=== PATIENT | female | born 1985 | race American Indian/Alaskan Native ===

== ENCOUNTER 2020-09-21 18:48 | Emergency (ER) | payer SELFPAY ==
[2020-09-21 21:29] LABS: Bilirubin,Urine NEG (Negative); Blood,Urine NEG (Negative); Color,Urine Yellow (Yellow); Mucus,Urine FEW /HPF; Protein,Urine <15 mg/dL mg/dL (Negative); Urobilinogen,Urine < 2.0 mg/dL (<2.0)
[2020-09-21 21:37] LABS: HCG Qualitative,Urine Negative (Negative)
[2020-09-21] MEDS ORDERED: ONDANSETRON 4 MG ODT TAB PO ONE (21:47)
[2020-09-21] MEDS ORDERED: ACETAMINOPHEN 500 MG TAB PO ONE (21:47)
[2020-09-21] MEDS ORDERED: valACYclovir 500 MG TAB PO ONE (21:47)
--- NOTE | 2020-09-21 22:44 | Emergency Department Report ---
ED Female HPI - General Chief complaint: Urogenital-Female Stated complaint: VAGINAL DISCHARGE/SORE/BLEEDING Source: patient Mode of arrival: Ambulatory Limitations: No Limitations - History of Present Illness Initial comments: Patient is a A0 35-year-old -[place] female with no past medical history who presents to the ED with complaint of acute onset persistent painful vaginal lesions and vaginal discharge with malodorous smell for the last 4 days. Patient states that she last had an unprotected sexual intercourse about 5 days ago and that the symptoms have been persistent and worsened in the last 2 days. Patient states that she was initially treated at an urgent care clinic in [place] empirically for gonorrhea and chlamydia but the discharge has been persistent and constant. Patient states that she even used antifungal cream thinking it was a yeast infection but this has not helped. Patient denies dysuria, vaginal bleeding, dyspareunia, chest pain, shortness of breath, cough, sore throat, nausea, vomiting, abdominal pain or low back pain. MD Complaint: vaginal discharge, other (urinary urgency and frequency; painful vaginal lesions) -: Sudden, days(s) (4) Location: labia Radiation: non-radiating Severity: severe Severity scale (0 -10): 7 Quality: sharp, aching Consistency: constant Improves with: none Worsens with: urination, movement Are you Now?: No Last Menstrual Period: 09/11/20 EDC: 06/18/21 Associated Symptoms: denies other symptoms, vaginal discharge, rash (painful vaginal lesions). denies: vaginal bleeding, abdominal pain, nausea/vomiting, fever/chills, headaches, loss of appetite, dysuria, seizure, shortness of breath, syncope, other - Related Data Sexually active: Yes : 2 Para: 2 A: 0 Previous Rx's Medication Instructions Recorded Last Taken Type Fluconazole (Nf) [Diflucan TAB] 150 mg PO ONCE #2 tablet 09/21/20 Unknown Rx Ibuprofen [Motrin] 800 mg PO Q8HR PRN #24 tablet 09/21/20 Unknown Rx Ondansetron [Zofran Odt] 4 mg PO Q6HR PRN #15 tab.rapdis 09/21/20 Unknown Rx Valacyclovir HCl [Valtrex] 1,000 mg PO Q8H #30 tablet 09/21/20 Unknown Rx metroNIDAZOLE [Flagyl] 500 mg PO Q12HR #20 tab 09/21/20 Unknown Rx Allergies Allergy/AdvReac Type Severity Reaction Status Date / Time No Known Allergies Allergy Verified 09/21/20 21:51 ED Review of Systems ROS: Stated complaint: VAGINAL DISCHARGE/SORE/BLEEDING Other details as noted in HPI Constitutional: denies: chills, fever Eyes: denies: eye pain, eye discharge, vision change ENT: denies: ear pain, throat pain Respiratory: denies: cough, shortness of breath, wheezing Cardiovascular: denies: chest pain, palpitations Endocrine: no symptoms reported Gastrointestinal: denies: abdominal pain, nausea, diarrhea Genitourinary: urgency, frequency, discharge, other (Painful vaginal lesions). denies: dysuria Musculoskeletal: denies: back pain, joint swelling, arthralgia Skin: denies: rash, lesions Neurological: denies: headache, weakness, paresthesias Psychiatric: denies: anxiety, depression Hematological/Lymphatic: denies: easy bleeding, easy bruising ED Past Medical Hx - Past Medical History Previous Medical History?: No - Surgical History Past Surgical History?: No - Medications Home Medications: Home Medications Medication Instructions Recorded Confirmed Last Taken Type Fluconazole (Nf) [Diflucan TAB] 150 mg PO ONCE #2 tablet 09/21/20 Unknown Rx Ibuprofen [Motrin] 800 mg PO Q8HR PRN #24 tablet 09/21/20 Unknown Rx Ondansetron [Zofran Odt] 4 mg PO Q6HR PRN #15 tab.rapdis 09/21/20 Unknown Rx Valacyclovir HCl [Valtrex] 1,000 mg PO Q8H #30 tablet 09/21/20 Unknown Rx metroNIDAZOLE [Flagyl] 500 mg PO Q12HR #20 tab 09/21/20 Unknown Rx ED Physical Exam - General Limitations: No Limitations General appearance: alert, in no apparent distress - Head Head exam: Present: atraumatic, normocephalic, normal inspection - Eye Eye exam: Present: normal appearance, PERRL, EOMI Pupils: Present: normal accommodation - ENT ENT exam: Present: normal exam, normal orophraynx, mucous membranes moist, TM's normal bilaterally, normal external ear exam - Neck Neck exam: Present: normal inspection, full ROM - Respiratory Respiratory exam: Present: normal lung sounds bilaterally. Absent: respiratory distress, wheezes, stridor, chest wall tenderness, accessory muscle use, decreased breath sounds, other - Cardiovascular Cardiovascular Exam: Present: regular rate, normal rhythm, normal heart sounds. Absent: systolic murmur, diastolic murmur, rubs, gallop - GI/Abdominal GI/Abdominal exam: Present: soft, normal bowel sounds. Absent: tenderness, guarding, rebound, hyperactive bowel sounds, hypoactive bowel sounds, organomegaly - External exam: Present: erythema, lesions (Multiple ulcerated tender vaginal lesions in the labia minora bilaterally) Speculum exam: Present: normal speculum exam, erythema, vaginal discharge, cervical discharge Bi-manual exam: Present: normal bi-manual exam, other (Female RN furniture mover Ms. Pereyra present). Absent: cervical motion tendernes, adnexal tenderness, adnexal mass, uterine enlargement, uterine tenderness - Extremities Exam Extremities exam: Present: normal inspection, full ROM, normal capillary refill - Back Exam Back exam: Present: normal inspection, full ROM. Absent: tenderness, CVA tenderness (R), CVA tenderness (L), muscle spasm, paraspinal tenderness, v ertebral tenderness - Neurological Exam Neurological exam: Present: alert, oriented X3, CN II-XII intact, normal gait, reflexes normal - Psychiatric Psychiatric exam: Present: normal affect, normal mood - Skin Skin exam: Present: warm, dry, intact, normal color, rash (Erythematous m aculopapular rash on left upper medial thigh with tenderness), erythema ED Course Vital Signs 09/21/20 18:53 Temperature 98 F Pulse Rate 60 Respiratory 16 Rate Blood Pressure 135/72 [Right] O2 Sat by Pulse 100 Oximetry ED Medical Decision Making - Medical Decision Making This is a A0 35-year-old -[place] female with no past medical history who presents to the ED with complaint of acute onset persistent painful vaginal lesions and vaginal discharge with malodorous smell for the last 4 days. Patient states that she last had an unprotected sexual intercourse about 5 days ago and that the symptoms have been persistent and worsened in the last 2 days. Patient states that she was initially treated at an urgent care clinic in [place] empirically for gonorrhea and chlamydia but the discharge has been persistent and constant. Patient states that she even used antifungal cream thinking it was a yeast infection but this has not helped. In the ED, patient is alert and oriented x3 and is not in any distress. Urinalysis is unremarkable. Wet prep test was positive for Gardnerella vaginalis. Physical exam revealed multiple erythematous ulcerated tender vesicular lesions on the vaginal vault and labia minora. Patient was started on Valtrex 1 g p.o. x1 in the ED and also treated for pain. Patient was discharged home on antibiotics and antiviral medications and was advised to follow-up with her primary care physician in 7 to 10 days for reevaluation. Patient was also advised to consider following up with health department for further STD testing including HIV and syphilis. Patient is advised return to the ED immediately if symptoms g et worse. - Differential Diagnosis Genital herpes; bacterial vaginosis; trichomonas; UTI; STD; folliculitis Critical care attestation.: If time is entered above; I have spent that time in minutes in the direct care of this critically ill patient, excluding procedure time. ED Disposition Clinical Impression: Genital herpes in women, Bacterial vaginosis, Vaginal discharge Disposition: TO HOME OR SELFCARE Is pt being admited?: No Does the pt Need Aspirin: No Condition: Stable Instructions: Bacterial Vaginosis (ED), Bacterial Vaginosis, [id number], Antibiotic Medicine, Adult, [id number], Genital Herpes Additional Instructions: Urine test results showed no acute urinary tract infection. The wet prep test results was positive for Gardnerella vaginalis which is consistent with bacterial vaginosis. There was no yeast or trichomonas identified. Therefore take medications for genital herpes and bacterial vaginosis as advised, drink plenty of fluids and follow-up with your primary care physician in 7 to 10 days for reevaluation. Consider following up at the health department for further STD testing including HIV and syphilis. Return to the ED immediately if symptoms get worse. Prescriptions: Fluconazole (Nf) [Diflucan TAB] 150 mg PO ONCE #2 tablet metroNIDAZOLE [Flagyl] 500 mg PO Q12HR #20 tab Ibuprofen [Motrin] 800 mg PO Q8HR PRN #24 tablet PRN Reason: Pain , Severe (7-10) Valacyclovir HCl [Valtrex] 1,000 mg PO Q8H #30 tablet Ondansetron [Zofran Odt] 4 mg PO Q6HR PRN #15 tab.rapdis PRN Reason: Nausea Referrals: [facility] [Provider Group] - 7-10 days Forms: STI Treatment and Prevention Time of Disposition: :51 Print Language: MALAY
[2020-09-21 23:35] VITALS: BP 122/73
== END 2020-09-21 23:34 | disposition home or self-care (01) ==
LOC: ED 18:48
DX: A60.09 Herpesviral infection of other urogenital tract (principal); N76.0 Acute vaginitis; Z79.899 Other long term (current) drug therapy
CPT/HCPCS: 81001; 81025; 87210; Q0162